=== PATIENT | female | born 1995 | race African-American/Black ===

== ENCOUNTER 2023-09-23 12:53 | Emergency (ER) | payer MEDICAID ==
[~2023-09-23] VITALS: Ht 175.3 cm; Wt 82.0 kg
[2023-09-23 13:08] VITALS: TEMP 98.5; O2SAT 100
[2023-09-23] MEDS ORDERED: KETOROLAC 60MG/2ML VIAL IM STA (16:01)
[2023-09-23] MEDS ORDERED: METH-653 GT (16:06)
[2023-09-23] MEDS ORDERED: ACETAMINOPHEN 325MG TABLET PO STA (16:08)
[2023-09-23] MEDS ORDERED: KETOROLAC 60MG/2ML VIAL IM NR (16:30)
[2023-09-23 16:40] VITALS: BP 97/50; PULSE 87; RESP 19
== END 2023-09-23 16:42 | disposition home or self-care (01) ==
LOC: ER 12:53
DX: M54.2 Cervicalgia (principal); M54.50 Low back pain, unspecified; J45.909 Unspecified asthma, uncomplicated; Z98.890 Other specified postprocedural states
CPT/HCPCS: 81025; 96372; 99283; J1885; Z7610